=== PATIENT | female | born 1990 | race African-American/Black ===

== ENCOUNTER 2020-07-17 07:11 | Emergency (ER) | payer BC ==
[~2020-07-17] VITALS: Ht 144.8 cm; Wt 47.6 kg
[~2020-07-17 07:11] MED LIST: BACTRIM DS TAB1 EACH PO; NORCO 5-325 TA1 EACH PO; VENTOLIN HFA 1818 GM INH
[2020-07-17 08:18] LABS: RDW 14.5 % (10.5-14.5)
[2020-07-17 08:19] LABS: ABSOLUTE NEUTROPHILS 16.4 thou/uL (1.4-8.2); BASOPHILS 0.5 % (0.0-2.0); EOSINOPHILS 0.1 % (0.0-3.0); HEMATOCRIT 37.5 % (37.0-47.0); HEMOGLOBIN 12.7 gm/dL (12.0-15.0); MCH 30.5 pg (26.0-34.0); MCHC 33.8 g/dL (28.0-37.0); MCV 90.2 fL (80.0-100.0); MONOCYTES 6.4 % (1.0-8.0); PLATELET COUNT 377 thou/uL (150-400); RBC 4.16 mil/uL (4.20-5.00); WBC 19.3 thou/uL (4.0-11.0)
[2020-07-17 08:32] LABS: CALCIUM 9.2 mg/dL (8.5-10.1); POTASSIUM 3.6 mmol/L (3.5-5.1)
[2020-07-17 08:38] LABS: ALBUMIN 3.8 g/dL (3.4-5.0); TOTAL BILIRUBIN 0.5 mg/dL (0.2-1.0); TOTAL PROTEIN 8.7 g/dL (6.4-8.2)
[2020-07-17 09:38] LABS: URINE BILIRUBIN NEGATIVE (Negative); URINE BLOOD 3+ (Negative); URINE CLARITY CLEAR; URINE COLOR YELLOW; URINE GLUCOSE-RANDOM* NEGATIVE (Negative); URINE KETONES NEGATIVE (Negative); URINE NITRITE-REFLEX NEGATIVE (Negative); URINE PROTEIN (DIPSTICK) NEGATIVE (Negative); URINE SPECIFIC GRAVITY <= 1.005 (1.005-1.035); URINE UROBILINOGEN 0.2 E.U./dl (0.2-1.0)
[2020-07-17 09:39] LABS: URINE LEUKOCYTES-REFLEX 1+ (Negative)
[2020-07-17 09:48] LABS: BACTERIA-REFLEX 1-9 Few /HPF (None Seen); CASTS None Seen /LPF (None Seen); CRYSTALS None Seen /LPF (None Seen); SQUAMOUS 4-10 Moderate /LPF (0-3); URINE RBC 3-10 Few /HPF (0-2); URINE WBC-REFLEX 6-15 Few /HPF (0-5)
[2020-07-17] MEDS ORDERED: CLEOCIN HCL300 MG PO (12:35)
[2020-07-17 13:27] VITALS: BP 104/62
== END 2020-07-17 13:28 | disposition home or self-care (01) ==
LOC: ER 07:11
PROVIDERS: Emergency Medicine
DX: N75.1 Abscess of Bartholin's gland (principal); D72.829 Elevated white blood cell count, unspecified; J45.909 Unspecified asthma, uncomplicated; Z88.1 Allergy status to other antibiotic agents; Z88.8 Allergy status to other drugs, medicaments and biological substances

== ENCOUNTER 2020-07-19 06:57 | Emergency (ER) | payer BC ==
[~2020-07-19] VITALS: Ht 144.8 cm; Wt 47.6 kg
[~2020-07-19 06:57] MED LIST changes: +CLEOCIN HCL300 MG PO
[2020-07-19 06:59] VITALS: BP 116/75
== END 2020-07-19 07:31 | disposition home or self-care (01) ==
LOC: ER 06:57
DX: N75.1 Abscess of Bartholin's gland (principal); J45.909 Unspecified asthma, uncomplicated; Z79.2 Long term (current) use of antibiotics; Z79.899 Other long term (current) drug therapy; Z88.2 Allergy status to sulfonamides; Z88.8 Allergy status to other drugs, medicaments and biological substances

== ENCOUNTER 2021-03-07 11:58 | Emergency (ER) | payer BC ==
[~2021-03-07] VITALS: Ht 144.8 cm; Wt 49.0 kg
[2021-03-07 12:02] VITALS: BP 118/77
== END 2021-03-07 12:44 | disposition home or self-care (01) ==
LOC: ER 11:58
PROVIDERS: Physician Assistant
DX: U07.1 COVID-19 (principal); J45.909 Unspecified asthma, uncomplicated; Z79.51 Long term (current) use of inhaled steroids; Z88.6 Allergy status to analgesic agent; Z88.2 Allergy status to sulfonamides; Z91.048 Other nonmedicinal substance allergy status

== ENCOUNTER 2021-03-19 09:40 | Emergency (ER) | payer BC ==
[~2021-03-19] VITALS: Ht 144.8 cm; Wt 47.6 kg
[2021-03-19 09:55] VITALS: BP 104/75
== END 2021-03-19 10:50 | disposition home or self-care (01) ==
LOC: ER 09:40
DX: U07.1 COVID-19 (principal); J45.909 Unspecified asthma, uncomplicated; Z79.51 Long term (current) use of inhaled steroids; Z88.6 Allergy status to analgesic agent; Z88.2 Allergy status to sulfonamides; Z91.09 Other allergy status, other than to drugs and biological substances

== ENCOUNTER 2021-05-13 01:16 | Emergency (ER) | payer BC ==
[~2021-05-13] VITALS: Ht 144.8 cm; Wt 49.0 kg
[2021-05-13 03:00] VITALS: BP 116/60
== END 2021-05-13 03:16 | disposition home or self-care (01) ==
LOC: ER 01:16
DX: M25.571 Pain in right ankle and joints of right foot (principal); J45.909 Unspecified asthma, uncomplicated; Z79.51 Long term (current) use of inhaled steroids; Z88.2 Allergy status to sulfonamides; Z88.8 Allergy status to other drugs, medicaments and biological substances; Z91.018 Allergy to other foods